=== PATIENT | male | born 1955 | race Caucasian/White ===

== ENCOUNTER 2018-05-09 21:20 | Emergency (ER) | payer OTHER ==
[~2018-05-09] VITALS: Ht 175.3 cm; Wt 62.5 kg
[2018-05-09 21:37] VITALS: BP 141/92
== END 2018-05-09 23:11 | disposition home or self-care (01) ==
LOC: ED 21:41
DX: R68.89 Other general symptoms and signs (principal); Z00.01 Encounter for general adult medical examination with abnormal findings
CPT/HCPCS: 36415; 86705; 86706; 86803; 87340; 87806; 99283; G0475